=== PATIENT | male | born 1980 | race Hispanic/Latino ===

== ENCOUNTER 2022-05-27 06:31 | Emergency (ER) | payer SELFPAY ==
--- NOTE | ~2022-05-27 | US_ITS ---
EXAMINATION: US scrotum doppler DATE: 05/27/2022 07:59 INDICATION: Left testicular pain TECHNIQUE: Testicular sonogram utilizing grayscale and Doppler COMPARISON: None. FINDINGS: The right testis measures 3.9 x 2.6 x 2.6 cm. The left testis measures 3.0 x 2.5 x 2.4 cm. There is mild scrotal wall thickening. There is normal vascular flow to both testes. The right epidid ymis is normal with normal vascular flow. The left epididymis is normal with normal vascular flow. Th ere is a moderate-sized left hydrocele. IMPRESSION: 1. Moderate-sized left hydrocele. Reviewed, dictated and finalized at location B.
[2022-05-27 06:34] VITALS: BP 161/106; PULSE 74; RESP 18; TEMP 36.6; O2SAT 99
--- NOTE | 2022-05-27 07:10 | PC.NURSE ---
Report given to Ortiz TOSCANO
--- NOTE | 2022-05-27 07:29 | ED.GENADULT ---
HPI - General Adult General Chief complaint: Urogenital-Male Stated complaint: left testical pain and swelling x 2 weeks Time Seen by Provider: 05/27/22 07:01 History of Present Illness HPI narrative: 41-year-old Czech-speaking male presents to the department for evaluation of left-sided testicular pain x2 weeks. Through friend who is acting as hydrodynamics professor patient has inform me that he has felt intermittent left testicular pain x2 weeks. Pain is described as severe and although the pain is nonradiating he did feel some low back pain prior to the onset of testicular pain. There are no aggravating or alleviating factors. No hematuria, penile discharge and he is not sexually active. Related Data Allergies Allergy/AdvReac Type Severity Reaction Status Date / Time No Known Allergies Allergy Verified 05/27/22 06:33 Review of Systems Review of Systems: CONSTITUTIONAL: Denies fever, chills, or sweats. EYES: Denies visual changes, redness, or discharge. ENT: Denies rhinorrhea, congestion, sore throat, or otalgia. CARDIOVASCULAR: Denies chest pain, palpitations, or edema. RESPIRATORY: Denies cough or dyspnea. GASTROINTESTINAL: Denies abdominal pain, nausea, vomiting, or diarrhea. GENITOURINARY: Denies dysuria or hematuria. SKIN: Denies rash or itching. MUSCULOSKELETAL: Denies back pain, joint pain, or myalgia. NEUROLOGIC: Denies headache, numbness, or weakness. PSYCHIATRIC: Denies anxiety or depression. CONSTITUTIONAL: Denies fever, chills, or sweats. Exam Narrative: GENERAL: Well-appearing, well-nourished, and in no acute distress. HEAD: Normocephalic, atraumatic. EYES: PERRLA and EOMI. ENT: Nares clear, no rhinorrhea or epistaxis. Mucous membranes moist. NECK: Supple. CHEST: Clear to auscultation. No respiratory distress. HEART: Regular rate and rhythm. No murmur heard. Normal peripheral pulses. ABDOMEN: Soft, nontender, nondistended, normal active bowel sounds. EXTREMITIES: Normal range of motion. No edema. SKIN: Warm, dry, no rash. NEURO: No focal deficits. Alert and oriented x3. PSYCH: Normal mood and affect. : Left testicle is firm, high riding, tender to palpation Course Vital Signs Vital signs: Vital Signs Temperature 97.8 F 05/27/22 06:34 Pulse Rate 74 05/27/22 06:34 Respiratory Rate 18 05/27/22 06:34 Blood Pressure 161/106 H 05/27/22 06:34 Pulse Oximetry 99 05/27/22 06:34 Oxygen Delivery Room Air 05/27/22 06:34 Temperature 97.8 F 05/27/22 06:34 Pulse Rate 74 05/27/22 06:34 Respiratory Rate 18 05/27/22 06:34 Blood Pressure 161/106 H 05/27/22 06:34 Pulse Oximetry 99 05/27/22 06:34 Oxygen Delivery Room Air 05/27/22 06:34 Medical Decision Making MDM Narrative Medical decision making narrative: Concern for testicular torsion versus epididymitis. Labs and scrotal ultrasound have been ordered upon arrival. Attempts at manual detorsion were unsuccessful. Ultrasound demonstrates a moderate size left hydrocele. All results have been explained to patient through his friend as hydrodynamics professor. Referral to Dr. Morales from urology. Other labs are reassuring. Vital Signs Vital Signs: Vital Signs Temperature 97.8 F 05/27/22 06:34 Pulse Rate 74 05/27/22 06:34 Respiratory Rate 18 05/27/22 06:34 Blood Pressure 161/106 H 05/27/22 06:34 Pulse Oximetry 99 05/27/22 06:34 Oxygen Delivery Room Air 05/27/22 06:34 Temperature 97.8 F 05/27/22 06:34 Pulse Rate 74 05/27/22 06:34 Respiratory Rate 18 05/27/22 06:34 Blood Pressure 161/106 H 05/27/22 06:34 Pulse Oximetry 99 05/27/22 06:34 Oxygen Delivery Room Air 05/27/22 06:34 Lab Data Result diagrams: 05/27/22 07:44 05/27/22 08:04 Labs: Lab Results 05/27/22 05/27/22 05/27/22 Range/Units 07:44 07:44 08:04 WBC 10.0 (4.5-10.0) K/mm3 RBC 4.81 (4.6-6.20) M/mm3 Hgb 15.6 (14.0-18.0) g/dL Hct 44.9 (42.0-52.0) % MCV 93.3 (80-100)
[2022-05-27 07:52] LABS: Basophils Absolute Auto 0.1 K/mm3 (0.0-0.1); Basophils Percent Auto 0.6 % (0.2-1.2); Eosinophils Absolute Auto 0.3 K/mm3 (0-0.3); Hematocrit 44.9 % (42.0-52.0); Hemoglobin 15.6 g/dL (14.0-18.0); Immature Granulocyte Absolute 0.05 K/mm3 (0.00-0.031); Immature Granulocyte Percent A 0.5 % (0-0.5); Lymphocytes Absolute Auto 2.46 K/mm3 (0.9-3.2); Lymphocytes Percent Auto 24.7 % (18.3-44.2); Mean Corpuscular HGB Conc 34.7 g/dl (32-36); Mean Corpuscular Hemoglobin 32.4 pg (26-34); Mean Corpuscular Volume 93.3 fl (80-100); Monocytes Absolute Auto 0.6 K/mm3 (0.1-0.6); Monocytes Percent Auto 5.5 % (2.6-8.5); Neutrophils Absolute Auto 6.5 K/mm3 (1.3-6.7); Neutrophils Percent Auto 65.7 % (45.5-73.1); Platelet Count Result 255 k/mm3 (150-375); Red Blood Count 4.81 M/mm3 (4.6-6.20); Red Cell Distribution Width 12.6 % (11.5-14.5)
[2022-05-27 07:55] LABS: Appearance Urine Clear (Clear); Bilirubin Urine 1+ (Negative); Color Urine Yellow (Yellow); Glucose Urine UA Negative (Negative); Ketones Urine Negative (Negative); Leukocyte Esterase Ur Negative LEU/UL (Negative); Nitrate Urine Negative (Negative); Protein Urine Negative (Negative); Specific Grav Ur 1.025 (1.001-1.035); Urobilinogen Urine 0.2 mg/dL (<2.0)
[2022-05-27 07:57] LABS: Mucus Urine Few /lpf; RBC Urine 0-2 /hpf (0-2); WBC Urine 0-3 /hpf
[2022-05-27 08:01] LABS: Add Urine Microscopic? YES; Blood Urine Trace-Intact (Negative)
[2022-05-27 08:23] LABS: Glucose Point of Care 139 mg/dl (65-105)
[2022-05-27 08:29] LABS: Anion Gap 11 mmol/L (8-16); Blood Urea Nitrogen 13 mg/dL (9-20); Calcium 8.8 mg/dL (8.4-10.2); Carbon Dioxide 24 mmol/L (22-30); Chloride 107 mmol/L (98-107); Estimated CRCL calculation 120 ml/min; Estimated Glomerular Filt Rate > 60; Glucose 127 mg/dL (65-110); Potassium 3.7 mmol/L (3.4-5.0); Sodium 142 mmol/L (137-145)
[2022-05-27 09:09] LABS: INR 1.1; Partial Thromboplastin Time 28.7 SECONDS (22.3-36.8)
[2022-05-27 10:07] VITALS: BP 163/94; PULSE 81; RESP 16; O2SAT 98
== END 2022-05-27 10:08 | disposition home or self-care (01) ==
PROVIDERS: Emergency Provider Emergency Medicine
DX: N43.3 Hydrocele, unspecified (principal)
CPT/HCPCS: 36415; 76870; 80048; 81001; 82948; 85025; 85610; 85730; 93976; 99284

== ENCOUNTER 2025-05-11 14:57 | Emergency (ER) | payer SELFPAY ==
--- NOTE | ~2025-05-11 | US_ITS ---
EXAMINATION: US scrotum doppler DATE: 05/11/2025 18:40 INDICATION: Right scrotal bleeding TECHNIQUE: Testicular sonogram utilizing grayscale and Doppler COMPARISON: None. FINDINGS: The right testis measures 3.8 x 2.3 x 2.6 cm. The left testis measures 4.0 x 2.4 x 2.3 cm. Symmetric normal grayscale appearance to both testes. There is normal vascular flow to both testes. No change in a small left testicular appendage. The right epididymis is normal with normal vascular flow. The left epididymis is normal with normal vascular flow. There is no varicocele. Small right hydrocele and large left hydrocele. IMPRESSION: 1. Small right and large left hydroceles. Reviewed, dictated and finalized at location A.
--- OUTSIDE RECORDS SUMMARY | 2025-05-11 14:59 | XMS_ITS | Clinical Summary ---
Author Organization [facility] Address [address] [place] [address] Care Team Providers Care Slitter And Rewinder Name Role Phone Unavailable Primary Care Provider Unavailabl e Immunizations Immunization Administration Dates Next Due Covid-19, Mrna, Lnp-s, Pf, 30 Mcg/0.3 Ml Dose (P fizer) 05/21/2021 Social History Tobacco Use Types Packs/Day Years Used Date Smoking Tobacco: Never Assessed Sex and Gender Information Value Date Recorded Sex Assigned at Not on file Legal Sex Male 10:10 AM CDT Gender Identity Not on file Sexual Orientation Not on file Plan of Treatment Health Maintenance Due Date Last Done Comments Hepatitis C Virus (HCV) Screening 1980 TdaP Immunization 1980 Hepatitis B Immunization (1 of 3 - 19+ 3-dose series) 11/12/1998 Human Papillomavirus (HPV) Immunization (1 - 3-dose SCDM series) 11/12/2006 SARS-COV-2 Immunization ( season) 2024 05/21/2021 Cologuard 11/12/2024 Colonoscopy 11/12/2024 Colorectal Cancer Screening 11/12/2024 Immunochemical Fecal Occult Blood 11/12/2024 Influenza Immunization (#1) 2025 Respiratory Syncytial Virus (RSV) Immunization (Adult) (1 - 1-dose 75+ series) 11/12/2054 Meningococcal Immunization (ACWY) Aged Out No longer eligible based on patient's age to complete this topic Pneumococcal Immunization Combined Aged Out No longer eligible based on patient's age to complete this topic Rotavirus Immunization Aged Out No lo nger eligible based on patient's age to complete this topic
[2025-05-11 15:05] VITALS: BP 180/110; PULSE 96; RESP 20; TEMP 36.4; O2SAT 98
[2025-05-11 15:09] VITALS: BP 165/108
--- NOTE | 2025-05-11 17:12 | ED.GENADULT ---
HPI - General Adult General Chief complaint: Wound/Laceration <RAGHAVENDRA Greene Last Filed: 05/11/25 17:17> Stated complaint: bleeding from testicles <RAGHAVENDRA Greene Last Filed: 05/11/25 17:17> Time Seen by Provider: 05/11/25 17:12 <RAGHAVENDRA Greene Last Filed: 05/11/25 17:17> Focused HPI: Patient is a 44-year-old male who presents the ED with report bleeding from his right sided scrotum. Patient reports the bleeding began today and has been persistently wheezing. He denies any trauma, injury, scratching. Denies significant pain. Has history of left varicocele surgery 27 years ago. Denies abdominal pain, difficulty urinating. GENERAL: Well-appearing, well-nourished, and in no acute distress. HEAD: Normocephalic, atraumatic. CHEST: Clear to auscultation. ?No respiratory distress. HEART: Regular rate and rhythm.? NEURO: ?Alert and oriented x3. Patient screened in triage and initial orders placed.? ?Additional care and disposition to be based upon?diagnostic testing and treatment. <RAGHAVENDRA Greene Last Filed: 05/11/25 17:17> Source: patient <RAGHAVENDRA Greene Last Filed: 05/11/25 17:17> Mode of arrival: ambulatory <RAGHAVENDRA Greene Last Filed: 05/11/25 17:17> Limitations: no limitations <RAGHAVENDRA Greene Last Filed: 05/11/25 17:17> Related Data Allergies/adverse reactions: Allergies Allergy/AdvReac Type Severity Reaction Status Date / Time No Known Allergies Allergy Verified 05/27/22 06:33 <RAGHAVENDRA Greene Last Filed: 05/11/25 17:17> Exam Narrative: APPEARANCE: No apparent distress. Head: atraumatic. EYES: EOMI, NOSE: Atraumatic NECK: Trachea midline RESPIRATORY: No increased rate of breathing CARDIOVASCULAR: RRR, ABDOMINAL: Non-distended testicle exam: no testicular pain or swelling. Normal lie. Patient has a small fleshy growth/ condyloma that is bleeding on the right side of his scrotum. MUSCULOSKELETAl: No obvious deformities NEURO: Alert. Moving 4/4 extremities SKIN:: Warm, dry. Normal color PSYCHIATRIC: Normal affect <Nicola Senior MD - Last Filed: 05/11/25 20:38> Course Vital Signs Vital signs: Vital Signs Temperature 97.5 F L 05/11/25 15:05 Pulse Rate 96 05/11/25 15:05 Respiratory Rate 20 05/11/25 15:05 Blood Pressure 180/110 H 05/11/25 15:05 Pulse Oximetry 98 05/11/25 15:05 Oxygen Delivery Room Air 05/11/25 15:05 Temperature 97.5 F L 05/11/25 15:05 Pulse Rate 96 05/11/25 15:05 Respiratory Rate 20 05/11/25 15:05 Blood Pressure 165/108 H 05/11/25 15:09 Pulse Oximetry 98 05/11/25 15:05 Oxygen Delivery Room Air 05/11/25 15:05 <Karma Willard PA-C - Last Filed: 05/11/25 17:17> Vital Signs Temperature 97.5 F L 05/11/25 15:05 Pulse Rate 96 05/11/25 15:05 Respiratory Rate 20 05/11/25 15:05 Blood Pressure 180/110 H 05/11/25 15:05 Pulse Oximetry 98 05/11/25 15:05 Oxygen Delivery Room Air 05/11/25 15:05 Temperature 97.5 F L 05/11/25 15:05 Pulse Rate 96 05/11/25 15:05 Respiratory Rate 20 05/11/25 15:05 Blood Pressure 165/108 H 05/11/25 15:09 Pulse Oximetry 98 05/11/25 15:05 Oxygen Delivery Room Air 05/11/25 15:05 <Nicola Senior MD - Last Filed: 05/11/25 20:38> Medical Decision Making MDM Narrative Medical decision making narrative: MSE by CARROLL in triage. <Karma Willard PA-C - Last Filed: 05/11/25 17:17> MSE by CARROLL in triage. 44-year-old male presenting with bleeding condyloma on his scrotum. It was cauterized with silver nitrate bleeding is controlled. He has been instructed follow-up with primary care physician for further management. <Nicola Senior MD - Last Filed: 05/11/25 20:38> Vital Signs Vital Signs: Vital Signs Temperature 97.5 F L 05/11/25 15:05 Pulse Rate 96 05/11/25 15:05 Respiratory Rate 20 05/11/25 15:05 Blood Pressure 180/110 H 05/11/25 15:05 Pulse Oximetry 98 05/11/25 15:05 Oxygen Delivery Room Air 05/11/25 15:05 Temperature 97.5 F L 05/11/25 15:05 Pulse Rate 96 05/11/25 15:05 Respiratory Rate 20 05/11/25 15:05 Blood Pressure 165/108 H 05/11/25 15:09 Pulse Oximetry 98 05/11/25 15:05 Oxygen Delivery Room Air 05/11/25 15:05 <Karma Willard PA-C - Last Filed: 05/11/25 17:17> Vital Signs Temperature 97.5 F L 05/11/25 15:05 Pulse Rate 96 05/11/25 15:05 Respiratory Rate 20 05/11/25 15:05 Blood Pressure 180/110 H 05/11/25 15:05 Pulse Oximetry 98 05/11/25 15:05 Oxygen Delivery Room Air 05/11/25 15:05 Temperature 97.5 F L 05/11/25 15:05 Pulse Rate 96 05/11/25 15:05 Respiratory Rate 20 05/11/25 15:05 Blood Pressure 165/108 H 05/11/25 15:09 Pulse Oximetry 98 05/11/25 15:05 Oxygen Delivery Room Air 05/11/25 15:05 <Nicola Senior MD - Last Filed: 05/11/25 20:38> Lab Data Labs: Lab Results 05/11/25 Range/Units 18:36 Urine Color Dark yellow (Yellow) Urine Appearance Clear (Clear) Urine pH 6.0 (5.0-9.0) Ur Specific [place] 1.027 (1.001-1.035) Urine Protein 1+ H (Negative) mg/dL Urine Glucose (UA) Negative (Negative) mg/dL Urine Ketones Trace H (Negative) mg/dL Ur Blood (Man) 1+ H (Negative) Urine Nitrate Negative (Negative) Urine Bilirubin Negative (Negative) Urine Urobilinogen 1.0 (<2.0) mg/dL Leukocyte Esterase Rfl Negative (Negative) OLIVIA/UL Urine RBC 0-2 (0-2) /hpf Urine WBC 0-5 (0-3) /hpf Ur Squamous Epith Cells None seen (Few) /hpf Urine Bacteria None seen /hpf Urine Casts 0-2 <RAGHAVENDRA Greene Last Filed: 05/11/25 17:17> Lab Results 05/11/25 Range/Units 18:36 Urine Color Dark yellow (Yellow) Urine Appearance Clear (Clear) Urine pH 6.0 (5.0-9.0) Ur Specific [place] 1.027 (1.001-1.035) Urine Protein 1+ H (Negative) mg/dL Urine Glucose (UA) Negative (Negative) mg/dL Urine Ketones Trace H (Negative) mg/dL Ur Blood (Man) 1+ H (Negative) Urine Nitrate Negative (Negative) Urine Bilirubin Negative (Negative) Urine Urobilinogen 1.0 (<2.0) mg/dL Leukocyte Esterase Rfl Negative (Negative) OLIVIA/UL Urine RBC 0-2 (0-2) /hpf Urine WBC 0-5 (0-3) /hpf Ur Squamous Epith Cells None seen (Few) /hpf Urine Bacteria None seen /hpf Urine Casts 0-2 <Nicola Senior MD - Last Filed: 05/11/25 20:38> Discharge Plan Discharge Clinical Impression: Condyloma, Bleeding <RAGHAVENDRA Greene Last Filed: 05/11/25 17:17> Patient Disposition: Home <RAGHAVENDRA Greene Last Filed: 05/11/25 17:17> Condition: Stable <RAGHAVENDRA Greene Last Filed: 05/11/25 17:17> Instructions: Antibiotic Form, Genital Warts (ED) <RAGHAVENDRA Greene Last Filed: 05/11/25 17:17> Additional Instructions: You were seen for bleeding. You have a condyloma under scrotum which was bleeding. If this starts bleeding again hold direct pressure for 15 minutes. Please follow-up with your primary care physician for further management. Le revisaron por sangrado. Tiene un condiloma debajo del escroto que sangraba. Si vuelve a sangrar, mantenga la presi?n directa toire 15 minutos. Consulte con davis m?dico de cabecera para recibir tratamiento. <Karma Willard PA-C - Last Filed: 05/11/25 17:17> Patient Language: Citizen Of [place] <Karma Willard PA-C - Last Filed: 05/11/25 17:17> Follow-up/Referrals: PHYSICIAN,MICROBIAL SPECIALIST [Primary Care Provider, Internal Medicine] <Karma Willard PA-C - Last Filed: 05/11/25 17:17>
--- OUTSIDE RECORDS SUMMARY | 2025-05-11 18:34 | XMS_ITS | Clinical Summary ---
Author Organization [facility] Address [address] [place] [address] Care Team Providers Care Intelligence Chief Name Role Phone Unavailable Primary Care Provider [...]
[2025-05-11 18:45] LABS: Add Urine Microscopic? YES; Appearance Urine Clear (Clear); Glucose Urine UA Negative (Negative); Leukocyte Esterase Ur Negative LEU/UL (Negative); Nitrate Urine Negative (Negative); Non Pathogenic Casts 0-2; Specific Grav Ur 1.027 (1.001-1.035)
[2025-05-11] MEDS: SILVER NITRATE (*SP) STICK 1 EACH TOPICAL (20:23)
== END 2025-05-11 20:49 | disposition home or self-care (01) ==
PROVIDERS: Physician Assistant; Emergency Provider Emergency Medicine
DX: A63.0 Anogenital (venereal) warts (principal)
CPT/HCPCS: 12001; 76870; 81001; 93976; 99284